=== PATIENT | male | born 1960 | race African-American/Black ===

== ENCOUNTER 2017-05-16 11:36 | Inpatient (IN) | payer OTHER ==
[~2017-05-16] VITALS: Ht 180.3 cm; Wt 90.7 kg
[~2017-05-16 11:36] MED LIST: ALBUTEROL SULF8.5 GM IH; AMLODIPINE BESY10 MG PO; AMLODIPINE BESYL5 MG PO; CREON 241 CAPSULE PO; DAILY VALUE1 EACH PO; DAILY VITE1 EAC1 PO; DICYCLOMINE HCL20 MG PO; ENDOCET 10-3251 EACH PO; ENDOCET 5-3251 EACH PO; FAMOTIDINE20 MG PO; FISH OIL 1,0001 EAC7 PO; FISH OIL500 MG PO; GLUCOPHAGE1000 MG PO; LIPITOR40 MG PO; LISINOPRIL-HCT1 EAC3 PO; LISINOPRIL20 MG PO; LISINOPRIL5 MG PO; LO-DOSE ASPIRIN81 M1 PO; LORAZEPAM1 MG PO; METFORMIN HCL1000 MG PO; NEXIUM20 MG PO; PERCOCET 5/31 TABLET PO; PROTONIX IV40 MG IV; PROTONIX40 MG PO; ROXICODONE5 MG PO; SERTRALINE HCL50 MG PO; ST. JOSEPH ASPI81 MG PO; TRAMADOL HCL50 MG PO; ZOFRAN ODT4 MG PO
[2017-05-16 12:01] LABS: APPEARANCE SL.HAZY ((CLEAR)); BILIRUBIN NEGATIVE; BLOOD NEGATIVE; COLOR AMBER ((YELLOW)); GLUCOSE (STRIP) >=500; KETONES 20; LEUKOCYTES NEGATIVE; NITRITE NEGATIVE; PROTEIN (STRIP) 100
[2017-05-16 12:05] LABS: HEMATOCRIT 43.3 % (38.0-50.0); HEMOGLOBIN 14.9 G/DL (12.5-16.6); MCH 30.8 PG (29.0-34.0); MCHC 34.4 G/DL (30.0-36.0); MCV 89.6 FL (86-99); PLATELET COUNT 257 K/uL (156-360); RBC DIS.WIDTH-CV 15.7 % (11.8-14.6); RBC DIS.WIDTH-SD 51.8 % (39-53); RED BLOOD COUNT 4.83 M/uL (4.00-5.50); WHITE BLOOD COUNT 6.6 K/uL (4.1-10.2)
[2017-05-16 12:13] LABS: BACTERIA NONE SEEN /HPF; EPITHELIAL CELLS NONE SEEN /HPF; MUCUS TRACE /LPF; RED BLOOD CELLS 0-5 /HPF (0-5); UCUL ADDED? NO; WHITE BLOOD CELLS 0-5 /HPF (0-5)
[2017-05-16 12:16] LABS: ALBUMIN 4.1 g/dL (3.2-4.8)
[2017-05-16 12:17] LABS: CHLORIDE 103 mEq/L (99-109); POTASSIUM 3.9 mEq/L (3.7-5.4); SODIUM 135 mEq/L (136-147)
[2017-05-16 12:19] LABS: GLUCOSE 325 mg/dL (70-99); TOTAL PROTEIN 7.8 g/dL (6.4-8.3)
[2017-05-16 12:21] LABS: TOTAL BILIRUBIN 0.6 mg/dL (0.0-1.0)
[2017-05-16 12:22] LABS: ALKALINE PHOSPHATASE 103 IU/L (3-129)
[2017-05-16 12:23] LABS: CREATININE 0.8 mg/dL (0.6-1.3); GFR ESTIMATE (CALCULATED) > 59 mL/min/ (58.99-99999)
[2017-05-16 12:24] LABS: AST (GOT) 16 IU/L (2-34); UREA NITROGEN (BUN) 9 mg/dL (9-23)
[2017-05-16 12:25] LABS: ALT (GPT) 17 IU/L (3-49)
[2017-05-16 12:26] LABS: LIPASE 598 U/L (1.0-51.0)
[2017-05-16 14:25] LABS: TRIGLYCERIDES 193 MG/DL (Normal: <150)
[2017-05-16 15:04] VITALS: BP 163/100
[2017-05-16 20:06] VITALS: BP 139/81
[2017-05-17 00:44] VITALS: BP 134/80
[2017-05-17 04:36] VITALS: BP 156/87
[2017-05-17 07:56] VITALS: BP 162/92
[2017-05-17 13:00] VITALS: BP 157/98
[2017-05-17] MEDS ORDERED: METFORMIN HCL1000 MG PO (15:21)
[2017-05-17 15:56] VITALS: BP 178/96
[2017-05-17 20:16] VITALS: BP 161/93
[2017-05-18 00:19] VITALS: BP 154/81
[2017-05-18 03:50] VITALS: BP 160/99
[2017-05-18 06:50] LABS: CHLORIDE 106 MEQ/L (99-109); CREATININE 0.6 MG/DL (0.6-1.3); GFR ESTIMATE (CALCULATED) > 59 mL/min/ (58.99-99999); LIPASE 502 U/L (1.0-51.0); POTASSIUM 4.1 MEQ/L (3.7-5.4); SODIUM 140 MEQ/L (136-147); UREA NITROGEN (BUN) 5 mg/dL (9-23)
[2017-05-18 06:55] LABS: GLUCOSE 109 mg/dL (70-99)
[2017-05-18 08:19] VITALS: BP 160/100
[2017-05-18] MEDS ORDERED: HUMALOG MI100 UNIT/6 SC (08:39)
[2017-05-18 12:33] VITALS: BP 180/99
[2017-05-18 16:24] VITALS: BP 191/105
[2017-05-18 20:05] VITALS: BP 165/110
[2017-05-19 00:09] VITALS: BP 163/85
[2017-05-19 07:39] VITALS: BP 164/100
[2017-05-19 12:10] VITALS: BP 154/96
[2017-05-19 15:59] VITALS: BP 162/99
[2017-05-20 00:13] VITALS: BP 172/96
[2017-05-20 07:54] VITALS: BP 160/102; BP 171/101
[2017-05-20 08:14] VITALS: BP 160/102
[2017-05-20] MEDS ORDERED: DICYCLOMINE HCL20 MG PO (14:50)
[2017-05-20] MEDS ORDERED: ATORVASTATIN CA80 MG PO (14:50)
[2017-05-20] MEDS ORDERED: NOVOLOG MI100 UNIT/3 SC (14:51)
[2017-05-20] MEDS ORDERED: METOPROLOL SUCC25 MG PO (14:52)
[2017-05-20] MEDS ORDERED: ENDOCET 5-3251 EACH PO (14:52)
== END 2017-05-20 18:00 | disposition home or self-care (01) | DRG 440 ==
LOC: EME 11:36 → EDOF 12:58 → ENRESERV 13:00 → 5SOUTH 14:51
PROVIDERS: Hospitalist
DX: K85.20 Alcohol induced acute pancreatitis without necrosis or infection (principal); E11.65 Type 2 diabetes mellitus with hyperglycemia; I10 Essential (primary) hypertension; K86.0 Alcohol-induced chronic pancreatitis; E11.51 Type 2 diabetes mellitus with diabetic peripheral angiopathy without gangrene; G89.29 Other chronic pain; F17.210 Nicotine dependence, cigarettes, uncomplicated; F10.11 Alcohol abuse, in remission; E86.0 Dehydration; Z79.82 Long term (current) use of aspirin; Z90.411 Acquired partial absence of pancreas; Z79.4 Long term (current) use of insulin; I25.2 Old myocardial infarction; Z82.3 Family history of stroke; Z82.49 Family history of ischemic heart disease and other diseases of the circulatory system
CPT/HCPCS: 74177; 80048; 80053; 81003; 82948; 83690; 84478; 85027; 93005; 93925; 99281; 99284; J1170; J1650; J1815; J1885; J2270; J2405; J7030; J7120; S0028